=== PATIENT | male | born 1965 | race Caucasian/White ===

== ENCOUNTER → 2019-09-18 | Outpatient (CLI) | payer OTHER ==
[~2019-09-18] VITALS: Ht 170 cm; Wt 57.0 kg
[~2019-09-18] MED LIST: CATHETER FLUSH 10 ML SYR IV PRN
[2019-09-18 12:35] VITALS: BP 260/86
== END ==
LOC: CARD 10:47
PROVIDERS: ATTEND Nurse Practitioner Family
DX: I10 Essential (primary) hypertension (principal); R94.31 Abnormal electrocardiogram [ECG] [EKG]; R07.89 Other chest pain
CPT/HCPCS: 78452; 93017; 93306